=== PATIENT | male | born 1935 | race Caucasian/White ===

== ENCOUNTER 2017-09-02 10:09 | Inpatient (IN) | payer MEDICARE ==
[2017-09-02] MEDS ORDERED: 0.9 % SODIUM CHLORIDE 10 ML DISP.SYRIN. IV (10:15)
[2017-09-02 10:27] LABS: ADD MAN DIFF? NO
[2017-09-02 10:30] LABS: BASO # 0.1 x10^3/uL (0.0-0.2); BASO % 1 % (0-3); EOS # 0.1 x10^3/uL (0.0-0.7); EOS % 1 % (0-3); HEMATOCRIT 43.6 % (39.0-53.0); HEMOGLOBIN 14.8 g/dL (13.0-17.5); LYMPH # 2.1 x10^3/uL (1.0-4.8); LYMPH % 31 % (24-48); MEAN CORPUSCULAR HEMOGLOBIN 31 pg (25-35); MEAN CORPUSCULAR HGB CONC 34 g/dL (31-37); MEAN CORPUSCULAR VOLUME 91 fL (79-100); MONO # 0.7 x10^3/uL (0.0-1.1); MONO % 11 % (0-9); NEUT # 3.9 x10^3uL (1.8-7.7); NEUT % 56 % (31-73); PLATELET COUNT 297 x10^3/uL (140-400); RED BLOOD COUNT 4.78 x10^6/uL (4.30-5.70); RED CELL DISTRIBUTION WIDTH 13.2 % (11.5-14.5); WHITE BLOOD COUNT 6.9 x10^3/uL (4.0-11.0)
[2017-09-02 10:54] LABS: ANION GAP 16 (6-14); BLOOD UREA NITROGEN 19 mg/dL (8-26); CALCIUM 9.6 mg/dL (8.5-10.1); CARBON DIOXIDE 23 mmol/L (21-32); CHLORIDE 102 mmol/L (98-107); CREATININE 1.3 mg/dL (0.7-1.3); GFR 52.7; GLUCOSE 102 mg/dL (70-99); POTASSIUM 3.8 mmol/L (3.5-5.1); SODIUM 141 mmol/L (136-145)
[2017-09-02 10:59] LABS: ALBUMIN 4.3 g/dL (3.4-5.0); ALK PHOS 105 U/L (46-116); ALT (SGPT) 29 U/L (16-63); AST (SGOT) 21 U/L (15-37); DIRECT BILIRUBIN 0.1 mg/dL (0.0-0.2); LIPASE 137 U/L (73-393); TOTAL BILIRUBIN 0.5 mg/dL (0.2-1.0); TOTAL PROTEIN 8.2 g/dL (6.4-8.2)
[2017-09-02 11:02] LABS: TROPONINI < 0.017 ng/mL (0.000-0.055)
[2017-09-02 11:08] LABS: CKMB MASS 1.8 ng/mL (0.0-3.6); CREATINE KINASE 92 U/L (39-308)
[2017-09-02 11:08] LABS: NT-PRO BNP 155 pg/mL (0-449)
[2017-09-02] MEDS: ASPIRIN CHEWABLE 81 MG TABLET. PO (11:17)
[2017-09-02] MEDS: IV NORMAL SALINE 1000ML BAG 1,000 ML IV (11:18)
[2017-09-02 11:41] LABS: BILIRUBIN,URINE NEGATIVE (NEG); CLARITY,URINE CLEAR; COLOR,URINE YELLOW; GLUCOSE,URINE NEGATIVE (NEG); NITRITE,URINE NEGATIVE (NEG); PROTEIN,URINE NEGATIVE (NEG-TRACE); UROBILINOGEN,URINE 0.2 mg/dL (0.2 mg/dL)
[2017-09-02 11:51] LABS: BACTERIA,URINE 0 /HPF (0-FEW); RBC,URINE 0 /HPF (0-2); SQUAMOUS EPITHELIAL CELL,UR FEW /LPF; WBC,URINE 0 /HPF (0-4)
[2017-09-02] MEDS ORDERED: IV NORMAL SALINE 1000ML BAG 1,000 ML IV (12:20)
[2017-09-02] MEDS ORDERED: ACETAMINOPHEN 325 MG TABLET. PO ×2 (12:30→14:45)
[2017-09-02] MEDS ORDERED: fentaNYL PF VIAL 100 MCG/2 ML VIAL IV (12:30)
[2017-09-02] MEDS ORDERED: ONDANSETRON PF 4 MG/2 ML VIAL. IV ×2 (12:30→14:45)
[2017-09-02] MEDS ORDERED: hydrALAZINE 20 MG/ML VIAL. IVP (14:45)
[2017-09-02] MEDS ORDERED: traMADol 50 MG TABLET PO (14:45)
[2017-09-02] MEDS ORDERED: MORPHINE SULFATE 2 MG/ML DISP.SYRIN. IV (14:45)
[2017-09-02] MEDS ORDERED: DOCUSATE SODIUM 100 MG CAPSULE. PO (14:45)
[2017-09-02] MEDS ORDERED: ENOXAPARIN 40 MG/0.4 ML SYRINGE. SQ (15:00)
== END 2017-09-02 14:00 | disposition home or self-care (01) | DRG 305 ==
LOC: ER 10:09 → 6 SOUTH 13:17
DX: I16.0 Hypertensive urgency (principal); I20.0 Unstable angina; I48.91 Unspecified atrial fibrillation; E03.9 Hypothyroidism, unspecified; Z82.49 Family history of ischemic heart disease and other diseases of the circulatory system; Z98.61 Coronary angioplasty status
CPT/HCPCS: 36415; 71045; 80048; 80076; 81001; 82553; 83690; 83735; 83880; 84443; 84484; 85025; 93005; 96360; 96361; 99285; 99285-25; J7030